=== PATIENT | male | born 1950 | race Caucasian/White ===

== ENCOUNTER → 2017-01-25 | Outpatient (CLI) | payer OTHER | LOC: ULTRA 15:09 | DX: G45.9 Transient cerebral ischemic attack, unspecified (principal); G81.91 Hemiplegia, unspecified affecting right dominant side ==

== ENCOUNTER → 2018-11-19 | Outpatient (CLI) | payer OTHER | LOC: RAD 16:02 | DX: J18.9 Pneumonia, unspecified organism (principal) ==

== ENCOUNTER → 2020-08-13 | Outpatient (CLI) | payer OTHER | LOC: RAD 14:35 | PROVIDERS: ATTEND Family Medicine | DX: M18.0 Bilateral primary osteoarthritis of first carpometacarpal joints (principal); M79.641 Pain in right hand; M79.642 Pain in left hand ==